=== PATIENT | female | born 1950 | race Caucasian/White ===

== ENCOUNTER 2017-10-29 17:09 | Emergency (ER) | payer MEDICARE ==
[2017-10-29 17:19] VITALS: BP 125/71; PULSE 91; TEMP 98; BMI 15.8
--- NOTE | 2017-10-29 19:11 | PDOC ---
History of Present Illness - General Chief Complaint: Pain Stated Complaint: PAIN Time Seen by Provider: 10/29/17 18:17 Past History - Past Medical History Allergies/Adverse Reactions: Allergies Allergy/AdvReac Type Severity Reaction Status Date / Time No Known Allergies Allergy Verified 10/29/17 17:19 Home Medications: Ambulatory Orders Ibuprofen [Advil -] 200 mg PO PRN 10/29/17 COPD: No Other medical history: osteoarthritis - Suicide/Smoking/Psychosocial Hx Smoking History: Never smoked *Physical Exam - Vital Signs Last Vital Signs Temp Pulse Resp BP Pulse Ox 98 F 91 H 18 125/71 100 10/29/17 17:16 10/29/17 17:16 10/29/17 17:16 10/29/17 17:16 10/29/17 17:16 *DC/Admit/Observation/Transfer Diagnosis at time of Disposition: Chronic pain Qualifiers: Chronic pain type: other chronic pain Qualified Code(s): G89.29 - Other chronic pain - Discharge Dispostion Disposition: LEFT BEFORE [facility] - Referrals Referrals: Hiren Mccloud MD [Primary Care Provider] - - Patient Instructions - Post Discharge Activity
== END 2017-10-29 22:50 | disposition left against medical advice (07) ==
LOC: JER 17:09
DX: Z53.21 Procedure and treatment not carried out due to patient leaving prior to being seen by health care provider (principal)
CPT/HCPCS: 99282-25

== ENCOUNTER 2018-01-24 15:57 | Observation (INO) | payer MEDICARE ==
--- NOTE | 2018-01-24 16:22 | PDOC ---
Rapid Medical Evaluation Time Seen by Provider: 01/24/18 16:18 Medical Evaluation: Allergies Allergy/AdvReac Type Severity Reaction Status Date / Time No Known Allergies Allergy Verified 10/29/17 17:19 I have performed a brief in-person evaluation of this patient. The patient presents with a chief complaint of: dizziness x 1 week; pain in head x 1 week Pertinent physical exam findings: none I have ordered the following: labs, IV, UA The patient will proceed to the ED for further evaluation. Discharge Disposition - Diagnosis Dizziness, Headache - Referrals - Patient Instructions - Post Discharge Activity
[2018-01-24 17:09] LABS: BASO % 0.7 % (0-2.0); HEMATOCRIT 38.7 % (32.4-45.2); MCH 27.9 pg (25.7-33.7); MCHC 33.7 g/dl (32.0-36.0); MEAN PLT VOLUME 7.6 fl (7.5-11.1); MONO % 6.7 % (3.8-10.2); NEUT % 56.6 % (42.8-82.8); PLATELET COUNT 365 K/MM3 (134-434); RBC 4.67 M/mm3 (3.60-5.2); RDW 13.3 % (11.6-15.6); WHITE BLOOD COUNT 7.9 K/mm3 (4.0-10.0)
[2018-01-24 17:34] LABS: ALBUMIN 3.7 g/dl (3.4-5.0); ANION GAP 6 (8-16); BLOOD UREA NITROGEN 18 mg/dL (7-18); CALCIUM 8.8 mg/dL (8.5-10.1); CHLORIDE 104 mmol/L (98-107); CO2 27 mmol/L (21-32); CREATININE 0.5 mg/dL (0.55-1.02); GLUCOSE,RANDOM 98 mg/dL (74-106); POTASSIUM 4.5 mmol/L (3.5-5.1); SGOT/AST 15 U/L (15-37); SGPT/ALT 21 U/L (12-78); SODIUM 137 mmol/L (136-145)
[2018-01-24 17:37] LABS: ALK PHOS 80 U/L (45-117); BILIRUBIN,TOTAL 0.6 mg/dL (0.2-1.0); TOT PROT 6.6 g/dl (6.4-8.2)
[2018-01-24 18:13] LABS: URINE APPEARANCE CLEAR; URINE BILIRUBIN NEGATIVE (<2.0 mg/dL); URINE COLOR YELLOW; URINE GLUCOSE (UA) NEGATIVE (NEGATIVE); URINE KETONE NEGATIVE (NEGATIVE); URINE LEUK ESTERASE TRACE (NEGATIVE); URINE NITRITE NEGATIVE (NEGATIVE); URINE PROTEIN NEGATIVE (NEGATIVE); URINE UROBILINOGEN NEGATIVE mg/dL (0.2-1.0)
[2018-01-24 18:28] LABS: EPI CELLS RARE /HPF (FEW); URINE MUCUS RARE
[2018-01-24] MEDS ORDERED: METOCLOPRAMIDE HCL INJECTION 10 MG/2 ML VIAL IVPUSH ONE (19:30)
[2018-01-24] MEDS ORDERED: SODIUM CHLORIDE 0.9% 1000 ML INFUS.BAG IV ONE (19:30)
--- NOTE | 2018-01-24 19:42 | PDOC ---
History of Present Illness <Salome Adames - Last Filed: 01/24/18 19:50> - General History Source: Patient, Family Exam Limitations: No Limitations - History of Present Illness Initial Comments: 01/24/18 20:19 The patient is a 67 year old female presenting with her daughter, with a significant past medical history of hypothyrodism, diverticulitis, osteoarthritis and osteoporosis, who presents to the emergency department complaining of a headache, dizziness and left sided weakness / numbness / pain for the last couple of days. She describes her headache as a pressure like discomfort, localized in the back of her head, radiating towards the front. She notes that she has since developed a redness in her right eye. The patient denies chest pain, shortness of breath, fever, chills, nausea, vomiting, diarrhea and constipation. Allergies: Benadryl, penicillin Past surgical history: None reported Social History: No alcohol, tobacco or drug use reported <John Garcia - Last Filed: 01/24/18 20:20> - General Chief Complaint: Headache Stated Complaint: EYE PROBLEM Time Seen by Provider: 01/24/18 16:18 Past History - Past Medical History COPD: No Thyroid Disease: Yes Other medical history: OP,OA - Surgical History Abdominal Surgery: Yes (F.T) - Suicide/Smoking/Psychosocial Hx Smoking History: Never smoked Have you smoked in the past 12 months: No Information on smoking cessation initiated: No Hx Alcohol Use: No Drug/Substance Use Hx: No Substance Use Type: None <Salome Adames - Last Filed: 01/24/18 19:50> <John Garcia - Last Filed: 01/24/18 20:20> - Past Medical History Allergies/Adverse Reactions: Allergies Allergy/AdvReac Type Severity Reaction Status Date / Time diphenhydramine Allergy Verified 01/24/18 16:18 [From Benadryl] Penicillins Allergy Verified 01/24/18 16:18 Home Medications: Ambulatory Orders Ibuprofen [Advil -] 200 mg PO PRN 10/29/17 Review of Systems - Review of Systems Able to Perform ROS?: Yes Comments:: 01/24/18 20:19 GENERAL/CONSTITUTIONAL: No fever or chills. No weakness. HEAD, EYES, EARS, NOSE AND THROAT: No change in vision. No ear pain or discharge. No sore throat. GASTROINTESTINAL: No nausea, vomiting, diarrhea or constipation. GENITOURINARY: No dysuria, frequency, or change in urination. CARDIOVASCULAR: No chest pain or shortness of breath. RESPIRATORY: No cough, wheezing, or hemoptysis. MUSCULOSKELETAL: No joint or muscle swelling or pain. No neck or back pain. SKIN: No rash NEUROLOGIC: (+) Headache and dizziness. Left sided weakness / numbness. No loss of consciousness. ENDOCRINE: No increased thirst. No abnormal weight change. HEMATOLOGIC/LYMPHATIC: No anemia, easy bleeding, or history of blood clots. ALLERGIC/IMMUNOLOGIC: No hives or skin allergy. <John Garcia - Last Filed: 01/24/18 20:20> *Physical Exam - Vital Signs Last Vital Signs Temp Pulse Resp BP Pulse Ox 97.8 F 83 18 101/62 100 01/24/18 16:20 01/24/18 16:20 01/24/18 16:20 01/24/18 16:20 01/24/18 16:20 <Salome Adames - Last Filed: 01/24/18 19:50> - Vital Signs Last Vital Signs Temp Pulse Resp BP Pulse Ox 97.8 F 83 18 101/62 100 01/24/18 16:20 01/24/18 16:20 01/24/18 16:20 01/24/18 16:20 01/24/18 16:20 - Physical Exam Comments: 01/24/18 20:19 Constitutional: Awake, alert, oriented. No acute distress. Head: Normocephalic. Atraumatic Eyes: PERRL. EOMI. Conjunctivae are not pale. ENT: Mucous membranes are moist and intact. Posterior pharynx without exudates or erythema. Uvula midline. Neck: Supple. Full ROM. No lymphadenopathy. Cardiovascular: Regular rate. Regular rhythm. S1, S2 regular. Distal pulses are 2+ and symmetric. Pulmonary/Chest: No evidence of respiratory distress. Clear to auscultation bilaterally No wheezing, rales or rhonchi. Abdominal: Soft and non-distended. There is no tenderness. No rebound, guarding or rigidity. No organomegaly. No palpable masses. Good bowel sounds. Back: No CVA tenderness. Musculoskeletal: No edema. No cyanosis. No clubbing. Full range of motion in all extremities. Nocalf tenderness. Radial/pedal pulses are intact and 2+ bilaterally Skin: Skin is warm and dry. No petechiae. No purpura. Neurological: (+) Left upper extremity ? weakness. Alert and oriented to person , place, and time. Cranial nerves II-XII are grossly intact. Normal speech. No sensory deficits. Psychiatric: Good eye contact. Normal interaction, affect and behavior. <John Garcia - Last Filed: 01/24/18 20:20> Heart Score/ECG Review - ECG Intrepretation Comment:: 01/24/18 19:49 sinus at 68, nl axis, nl interval, LVH, t wave inversions avl, no acute st/ changes, abnl ekg <Salome Adames - Last Filed: 01/24/18 19:50> ED Treatment Course - LABORATORY CBC & Chemistry Diagram: 01/24/18 16:57 01/24/18 16:57 - ADDITIONAL ORDERS Additional order review: Laboratory Results 01/24/18 01/24/18 17:50 16:57 Sodium 137 Potassium 4.5 Chloride 104 Carbon Dioxide 27 Anion Gap 6 L BUN 18 Creatinine 0.5 L Creat Clearance w eGFR > 60 Random Glucose 98 Calcium 8.8 Total Bilirubin 0.6 AST 15 ALT 21 Alkaline Phosphatase 80 Total Protein 6.6 Albumin 3.7 Urine Color Yellow Urine Appearance Clear Urine pH 6.0 Ur Specific [place] 1.020 Urine Protein Negative Urine Glucose (UA) Negative Urine Ketones Negative Urine Blood Negative Urine Nitrite Negative Urine Bilirubin Negative Urine Urobilinogen Negative Ur Leukocyte Esterase Trace Urine WBC (Auto) 2 Urine RBC (Auto) 1 Ur Epithelial Cells Rare Urine Mucus Rare 01/24/18 16:57 RBC 4.67 MCV 83.0 MCHC 33.7 RDW 13.3 MPV 7.6 Neutrophils % 56.6 Lymphocytes % 35.0 Monocytes % 6.7 Eosinophils % 1.0 Basophils % 0.7 - RADIOLOGY Radiology Studies Ordered: Category Date Time Status HEAD CT WITHOUT CONTRAST [CT] Stat CT Scan 01/24/18 19:29 Ordered CHEST PA & LAT [RAD] Stat Radiology 01/24/18 19:30 Ordered <Salome Adames - Last Filed: 01/24/18 19:50> - LABORATORY CBC & Chemistry Diagram: 01/24/18 16:57 01/24/18 16:57 - ADDITIONAL ORDERS Additional order review: Laboratory Results 01/24/18 01/24/18 17:50 16:57 Sodium 137 Potassium 4.5 Chloride 104 Carbon Dioxide 27 Anion Gap 6 L BUN 18 Creatinine 0.5 L Creat Clearance w eGFR > 60 Random Glucose 98 Calcium 8.8 Total Bilirubin 0.6 AST 15 ALT 21 Alkaline Phosphatase 80 Total Protein 6.6 Albumin 3.7 Urine Color Yellow Urine Appearance Clear Urine pH 6.0 Ur Specific [place] 1.020 Urine Protein Negative Urine Glucose (UA) Negative Urine Ketones Negative Urine Blood Negative Urine Nitrite Negative Urine Bilirubin Negative Urine Urobilinogen Negative Ur Leukocyte Esterase Trace Urine WBC (Auto) 2 Urine RBC (Auto) 1 Ur Epithelial Cells Rare Urine Mucus Rare 01/24/18 16:57 RBC 4.67 MCV 83.0 MCHC 33.7 RDW 13.3 MPV 7.6 Neutrophils % 56.6 Lymphocytes % 35.0 Monocytes % 6.7 Eosinophils % 1.0 Basophils % 0.7 <John Garcia - Last Filed: 01/24/18 20:20> Medical Decision Making - Medical Decision Making 01/24/18 19:50 a/p: 67yo female with stubbs since yesterday - L arm paresthesias and perioral numbness -slurred speech per the daughter since yesterday -no neck pain -no meningeal signs -mild weakness LUE on exam -will obtain head ct, labs, ekg, cxr -will need UA-will need obs overnight and consult to neuro 01/24/18 19:[address] Tamayo who accepts pt to service consult placed to Dr. Durham will place in stroke/tele <Salome Adames - Last Filed: 01/24/18 19:50> *DC/Admit/Observation/Transfer - Discharge Dispostion Decision to Admit order: Yes - Attestations Physician Attestion: 01/24/18 19:42 I, Dr. Salome Adames, DO, attest that this document has been prepared under my direction and personally reviewed by me in its entirety. I further attest, that it accurately reflects all work, treatment, procedures and medical decision -making performed by me. <Salome Adames - Last Filed: 01/24/18 19:50> - Attestations Scribe Attestion: 01/24/18 20:19 Documentation prepared by John Garcia, acting as medical assistant supervisor for Salome Adames DO <John Garcia - Last Filed: 01/24/18 20:20> Diagnosis at time of Disposition: Dizziness, Headache, Arm weakness, TIA (transient ischemic attack) - Discharge Dispostion Condition at time of disposition: Guarded
[2018-01-24] MEDS ORDERED: ACETAMINOPHEN 1000 MG/100 ML VIAL (NON FORMULARY) IVPB ONE (20:52)
[2018-01-24] MEDS ORDERED: ACETAMINOPHEN INJECTION 100 ML IVPB ONE (20:55)
[2018-01-24] MEDS ORDERED: METOCLOPRAMIDE HCL INJECTION 10 MG/2 ML VIAL ONE (20:55)
--- NOTE | 2018-01-24 21:07 | HP ---
Admitting History and Physical - Primary Care Physician PCP: Jeanie Tamayo - Admission Chief Complaint: headache and weakness History of Present Illness: 67 year old female presenting with her daughter, with a significant past medical history of hypothyrodism, diverticulitis, osteoarthritis and osteoporosis, who presents to the emergency department complaining of a headache , dizziness and left sided weakness / numbness / pain for the last couple of days. She describes her headache as a pressure like discomfort, localized in the back of her head, radiating towards the front. She notes that she has since developed a redness in her right eye. - Past Medical History Gastrointestinal: Yes: Diverticulitis Musculoskeletal: Yes: Osteoarthritis Endocrine: Yes: Hypothyroidism - Smoking History Smoking history: Never smoked Have you smoked in the past 12 months: No - Alcohol/Substance Use Hx Alcohol Use: No Home Medications - Allergies Allergies/Adverse Reactions: Allergies Allergy/AdvReac Type Severity Reaction Status Date / Time diphenhydramine Allergy Verified 01/24/18 16:18 [From Benadryl] Penicillins Allergy Verified 01/24/18 16:18 - Home Medications Home Medications: Ambulatory Orders Ibuprofen [Advil -] 200 mg PO PRN 10/29/17 Aspirin Coated [Ecotrin -] 81 mg PO DAILY #30 tablet.ec 01/25/18 Atorvastatin Ca [Lipitor] 40 mg PO HS #30 tablet 01/25/18 Levothyroxine [Synthroid -] 50 mcg PO DAILY #30 tablet 01/25/18 Review of Systems - Review of Systems Neurological: reports: Headache, Weakness Physical Examination Vital Signs: Vital Signs Temperature 97.8 F 01/24/18 16:20 Pulse Rate 83 01/24/18 16:20 Respiratory Rate 18 01/24/18 16:20 Blood Pressure 101/62 01/24/18 16:20 O2 Sat by Pulse Oximetry (%) 100 01/24/18 16:20 Constitutional: Yes: No Distress HENT: Yes: Atraumatic Neck: Yes: Supple Cardiovascular: Yes: Regular Rate and Rhythm Respiratory: Yes: CTA Bilaterally Gastrointestinal: Yes: Normal Bowel Sounds Extremities: Yes: WNL Edema: No Neurological: Yes: WNL ...Motor Strength: LUE (4/5) Labs: CBC, BMP 01/24/18 16:57 01/24/18 16:57 Problem List - Problems (1) Arm weakness Assessment/Plan: mild 4/5 ct scan done need mri/mra carotid doppler echo Code(s): R29.898 - OTH SYMPTOMS AND SIGNS INVOLVING THE MUSCULOSKELETAL SYSTEM (2) Headache Assessment/Plan: will start her on fioricet migraine? Code(s): R51 - HEADACHE (3) TIA (transient ischemic attack) Code(s): G45.9 - TRANSIENT CEREBRAL ISCHEMIC ATTACK, UNSPECIFIED Assessment/Plan Laboratory Tests 01/24/18 01/24/18 01/24/18 16:57 16:57 17:50 WBC 7.9 RBC 4.67 Hgb 13.0 Hct 38.7 MCV 83.0 MCH 27.9 MCHC 33.7 RDW 13.3 Plt Count 365 MPV 7.6 Absolute Neuts (auto) 4.5 Neutrophils % 56.6 Lymphocytes % 35.0 Monocytes % 6.7 Eosinophils % 1.0 Basophils % 0.7 Nucleated RBC % 0 Sodium 137 Potassium 4.5 Chloride 104 Carbon Dioxide 27 Anion Gap 6 L BUN 18 Creatinine 0.5 L Creat Clearance w eGFR > 60 Random Glucose 98 Calcium 8.8 Total Bilirubin 0.6 AST 15 ALT 21 Alkaline Phosphatase 80 Total Protein 6.6 Albumin 3.7 Urine Color Yellow Urine Appearance Clear Urine pH 6.0 Ur Specific [place] 1.020 Urine Protein Negative Urine Glucose (UA) Negative Urine Ketones Negative Urine Blood Negative Urine Nitrite Negative Urine Bilirubin Negative Urine Urobilinogen Negative Ur Leukocyte Esterase Trace Urine WBC (Auto) 2 Urine RBC (Auto) 1 Ur Epithelial Cells Rare Urine Mucus Rare
[2018-01-24] MEDS ORDERED: ACETAMINOPHEN/CAFFEINE/BUTALBITAL 1 TAB PO PRN (21:10)
[2018-01-25 00:44] LABS: BASO % 0.6 % (0-2.0); EOS % 1.3 % (0-4.5); HEMATOCRIT 37.2 % (32.4-45.2); HEMOGLOBIN 12.4 GM/dL (10.7-15.3); MCH 27.8 pg (25.7-33.7); MCHC 33.3 g/dl (32.0-36.0); MEAN CELL VOLUME 83.7 fl (80-96); MEAN PLT VOLUME 7.8 fl (7.5-11.1); MONO % 6.9 % (3.8-10.2); NEUT % 52.2 % (42.8-82.8); PLATELET COUNT 335 K/MM3 (134-434); RBC 4.44 M/mm3 (3.60-5.2); RDW 13.4 % (11.6-15.6); WHITE BLOOD COUNT 8.6 K/mm3 (4.0-10.0)
[2018-01-25 00:57] LABS: INR 1.02 (0.82-1.09); PROTHROMBIN TIME (PATIENT) 11.5 SEC (9.7-13.0)
[2018-01-25 01:02] LABS: ACTIVATED PTT 29.5 SECONDS (25.2-36.5)
[2018-01-25 01:09] LABS: ALBUMIN 3.4 g/dl (3.4-5.0); ANION GAP 5 (8-16); BILIRUBIN,TOTAL 0.5 mg/dL (0.2-1.0); BLOOD UREA NITROGEN 13 mg/dL (7-18); CALCIUM 8.2 mg/dL (8.5-10.1); CHLORIDE 108 mmol/L (98-107); CO2 26 mmol/L (21-32); CREATININE 0.5 mg/dL (0.55-1.02); GLUCOSE,RANDOM 138 mg/dL (74-106); MAGNESIUM 2.1 mg/dL (1.8-2.4); POTASSIUM 3.8 mmol/L (3.5-5.1); SGOT/AST 17 U/L (15-37); SGPT/ALT 20 U/L (12-78); SODIUM 139 mmol/L (136-145)
[2018-01-25 01:12] LABS: ALK PHOS 75 U/L (45-117); TOT PROT 6.2 g/dl (6.4-8.2)
[2018-01-25 01:48] VITALS: BMI 16.9
--- NOTE | 2018-01-25 08:29 | CON.NEURO ---
Consult Consult Specialty:: Neurology Referred by:: Dr. Tamayo Reason for Consultation:: Headache, Left sided Weakness, Redness of the right eye - History of Present Illness Chief Complaint: Headache, Left Sided Weakness, and Redness of the right eye History of Present Illness: Patient is a 67 year old woman who presents to the er with several days of headache and left sided weakness. She also has some redness of the right eye. She had the headache posteriorly but now also complains of some pain along the bridge of her nose. - History Source History Provided By: Patient, Medical Record Limitations to Obtaining History: No Limitations - Past Medical History Gastrointestinal: Yes: Diverticulitis Musculoskeletal: Yes: Osteoarthritis Endocrine: Yes: Hypothyroidism - Alcohol/Substance Use Hx Alcohol Use: No - Smoking History Smoking history: Never smoked Have you smoked in the past 12 months: No Home Medications - Allergies Allergies/Adverse Reactions: Allergies Allergy/AdvReac Type Severity Reaction Status Date / Time diphenhydramine Allergy Verified 01/24/18 16:18 [From Benadryl] Penicillins Allergy Verified 01/24/18 16:18 - Home Medications Home Medications: Ambulatory Orders Ibuprofen [Advil -] 200 mg PO PRN 10/29/17 Physical Exam-Neuro Vital Signs: Vital Signs Temperature 98.2 F 01/25/18 05:17 Pulse Rate 74 01/25/18 05:17 Respiratory Rate 20 01/25/18 05:17 Blood Pressure 125/65 01/25/18 05:17 O2 Sat by Pulse Oximetry (%) 100 01/25/18 05:08 Constitutional: Yes: Well Nourished, Calm, Thin Labs: CBC, BMP 01/25/18 00:26 01/25/18 00:26 INR, PTT INR 1.02 (0.82-1.09) 01/25/18 00:26 - Neuro Exam Level Of Consciousness: Yes: Alert, Oriented to Person, Oriented to Place, Oriented to Time Eyes: Yes: ELI (mild right conjunctival injection, no proptosis) Speech: WNL Cranial Nerves II-XII Intact: Yes DTR's: 0 Left Achilles, 0 Right Achilles, 2+ Left Bicep, 2+ Right Bicep, 2+ Left Tricep, 2+ Right Tricep, 2+ Left Brachioradialis, 2+ Right Brachioradialis Babinski: Absent Response to light touch: Normal Coordination: Normal: Pronator Drift (none) Motor Strength: 5/5: Left Arm, Right Arm, Left Leg, Right Leg NIH Stroke Scale - Initial Evaluation Level of consciousness: Alert Ask patient the month and their age: Answers both correctly Ask patient to open & close eyes; make fist and let go: Obeys both correctly Best gaze (horizontal eye movement): Normal Visual field testing: No visual field loss Facial paresis (Show teeth/raise eyebrows/close eyes tight): Normal symmetrical movement Motor Function: Left Arm: Normal Motor Function: Right Arm: Normal (extends arm 90 (or 45) degrees for 10 seconds without drift Motor Function: Left Leg: Normal (extends leg 30 degrees for 5 seconds without drift) Motor Function: Right Leg: Normal (extends leg 30 degrees for 5 seconds without drift) Limb Ataxia: No ataxia Sensory(Use pinprick test arms,legs,trunk,face/side to side): Normal Best language (Describe picture, name items, read sentences): No Aphasia Dysarthria (read several words): Normal articulation Extinction and Inattention: No abnormality - Total Score NIH Stroke Scale Score: 0 Imaging - Results Cat Scan: Report Reviewed (negative), Image Reviewed Problem List - Problems (1) Arm weakness Code(s): R29.898 - OTH SYMPTOMS AND SIGNS INVOLVING THE MUSCULOSKELETAL SYSTEM (2) Headache Code(s): R51 - HEADACHE (3) TIA (transient ischemic attack) Code(s): G45.9 - TRANSIENT CEREBRAL ISCHEMIC ATTACK, UNSPECIFIED Assessment/Plan transient weakness on the left side with headache. CT head unremarkable. Weakness appears to have resolved. Would get MRI, MRA, ECHO, Holter, lipid profile, ESR, CRP. We'll follow with you. Thanks.
[2018-01-25] MEDS ORDERED: ASPIRIN COATED 81 MG TABLET.EC PO SCH (10:00)
--- NOTE | 2018-01-25 11:53 | EKG ---
Test Reason : Blood Pressure : / mmHG Vent. Rate : 068 BPM Atrial Rate : 068 BPM P-R Int : 138 ms QRS Dur : 076 ms QT Int : 412 ms P-R-T Axes : 069 076 082 degrees QTc Int : 438 ms NORMAL SINUS RHYTHM CANNOT RULE OUT ANTERIOR INFARCT , AGE UNDETERMINED ABNORMAL ECG NO PREVIOUS ECGS AVAILABLE Confirmed by BECCA BAUTISTA MD ([id number]) on 01/25/2018 11:53:07 AM Referred By: Confirmed By:BECCA BAUTISTA MD
--- NOTE | 2018-01-25 13:27 | CONSULT ---
Admitting History and Physical - Primary Care Physician PCP: Jeanie Tamayo - Admission History of Present Illness: 67 year old female presenting with her daughter, with a significant past medical history of hypothyrodism, diverticulitis, osteoarthritis and osteoporosis, who presents to the emergency department complaining of a headache , dizziness and left sided weakness / numbness / pain for the last couple of days. She describes her headache as a pressure like discomfort, localized in the back of her head, radiating towards the front. She notes that she has since developed a redness in her right eye. History Source: Patient, Medical Record Limitations to Obtaining History: No Limitations, Language Barrier - Past Medical History Gastrointestinal: Yes: Diverticulitis Musculoskeletal: Yes: Osteoarthritis Endocrine: Yes: Hypothyroidism - Smoking History Smoking history: Never smoked Have you smoked in the past 12 months: No - Alcohol/Substance Use Hx Alcohol Use: No History - Admission Reason For Visit: TRANSIENT CEREBRAL ISCHEMIA - Diagnostics CT Scan: Report Reviewed ((-)) MRI: Pending - General Mental Status: Alert and Oriented, Awake and Alert, Able to Follow Commands Attention: Intact Ability to Follow Directions: Excellent Head/Neck Control: WFL - Hearing Hearing: Normal Speech Evaluation - Communication Primary Language: DANISH Communication: Yes: Within Normal Limits Oral Expression Ability: Yes: No Impairment - Speech Production Able to Make Needs Known: Yes: WNL Intelligibility: Yes: WNL - Speech Characteristics Voice Loudness: Normal Voice Pitch: Yes: Normal Voice Phonatory-based Quality: Yes: Normal Speech Pattern: Normal Speech Clarity: < 100% Nasal Resonance: Normal Articulation: Yes: Precise Rate of Speech: Intact - Language/Auditory Comprehension Follows: Yes: 2 Stage Simple Commands - Language/Verbal Expression Able to Respond to Simple Queries: Yes: WNL Able to Communicate Wants and Needs: Yes: WNL Functional Communication Status: Yes: WNL - Memory/Perception technician terminal and repeater Memory: Yes: WNL Short Term Memory: Yes: WNL - Swallow Evaluation/Bedside Assessment Current Nutritional Intake: Dysphagia Pureed, Thin Liquids Oral Secretions: Yes: WFL Dentition: Yes: Adequate Facial Symmetry at Rest: Symmetrical Facial Symmetry on Retraction: Symmetrical Facial Movement: Controlled Sensation: Reduced Left Against Resistance Opening: Normal Against Resistance Closing: Normal Pucker Lips: Normal Smile: Normal Lingual Movement: Normal, Symmetric Lingual Speed of Movement: Normal Lingual Movement Strgth Against Opposition: Normal Lingual Movement Characteristics: Normal Velopharyngeal Movement: Normal Laryngeal Elevation: WFL Laryngeal Movement: Able to Palpate Rate of Intake: WFL Bolus Size: WFL Labial Seal: WFL Chewing: WFL Oral Prep Time: WFL A-P Transit: WFL Pocketing: None Timing of Swallow: WFL Coughing/Throat Clear: No Change in Voice: No Recommendations - Speech Evaluation, Impression/Plan Impression: Speech, language, cognition, swallowing intact. Reports reduced perioral sensation L>R - Dysphagia Impressions/Plan Swallowing Skills: WF Dysphagia Impressions: No Impairment *Silent aspiration: cannot be R/O at bedside - Recommendations Diet Consistency: Regular Medication Administration: Whole with water Liquids: Thin Liquids
--- NOTE | 2018-01-25 16:37 | PN ---
Progress Note, Physician - Current Medication List Current Medications: Active Medications Acetaminophen/Butalbital/Caffeine (Fioricet -) 1 tablet PO Q6H PRN PRN Reason: HEADACHE Aspirin (Ecotrin -) 81 mg PO DAILY [facility] Last Admin: 01/25/18 09:16 Dose: 81 mg Atorvastatin Calcium (Lipitor -) 40 mg PO HS JOSE - Objective Vital Signs: Vital Signs Temperature 98.2 F 01/25/18 14:23 Pulse Rate 66 01/25/18 14:23 Respiratory Rate 18 01/25/18 14:23 Blood Pressure 112/58 01/25/18 14:23 O2 Sat by Pulse Oximetry (%) 100 01/25/18 09:00 Labs: CBC, BMP 01/25/18 00:26 01/25/18 00:26 INR, PTT INR 1.02 (0.82-1.09) 01/25/18 00:26 Problem List - Problems (1) Arm weakness Code(s): R29.898 - OTH SYMPTOMS AND SIGNS INVOLVING THE MUSCULOSKELETAL SYSTEM (2) Headache Code(s): R51 - HEADACHE (3) TIA (transient ischemic attack) Code(s): G45.9 - TRANSIENT CEREBRAL ISCHEMIC ATTACK, UNSPECIFIED
[2018-01-25] MEDS ORDERED: LEVOTHYROXINE NA 25 MCG TABLET (FP) PO SCH (17:00)
--- NOTE | 2018-01-25 19:07 | DS ---
Physical Examination Vital Signs: Vital Signs Temperature 98.3 F 01/25/18 17:00 Pulse Rate 73 01/25/18 17:00 Respiratory Rate 20 01/25/18 17:00 Blood Pressure 126/89 01/25/18 17:00 O2 Sat by Pulse Oximetry (%) 100 01/25/18 09:00 Constitutional: Yes: No Distress HENT: Yes: Atraumatic Neck: Yes: Supple Cardiovascular: Yes: Regular Rate and Rhythm Respiratory: Yes: CTA Bilaterally Gastrointestinal: Yes: Normal Bowel Sounds Extremities: Yes: WNL Neurological: Yes: Alert, Oriented ...Motor Strength: WNL Labs: CBC, BMP 01/25/18 00:26 01/25/18 00:26 Discharge Summary Reason For Visit: TRANSIENT CEREBRAL ISCHEMIA Current Active Problems Arm weakness (Acute) Dizziness (Acute) Headache (Acute) TIA (transient ischemic attack) (Acute) Condition: Good - Instructions Referrals: Dylan Durham MD [Staff Physician] - Hiren Mccloud MD [Primary Care Provider] - Disposition: HOME - Home Medications Comprehensive Discharge Medication List: Ambulatory Orders Ibuprofen [Advil -] 200 mg PO PRN 10/29/17 Aspirin Coated [Ecotrin -] 81 mg PO DAILY #30 tablet.ec 01/25/18 Atorvastatin Ca [Lipitor] 40 mg PO HS #30 tablet 01/25/18 Levothyroxine [Synthroid -] 50 mcg PO DAILY #30 tablet 01/25/18 dc home
[2018-01-25 19:57] VITALS: BP 124/71; PULSE 80; TEMP 98.1
[2018-01-25] MEDS ORDERED: ATORVASTATIN CA 40 MG TABLET (FP) PO SCH (22:00)
== END 2018-01-25 19:42 | disposition home or self-care (01) ==
LOC: JER 15:57 → JERBED 19:42 → J4W 01-25 00:59
PROVIDERS: ADMIT Internal Medicine; ATTEND Internal Medicine
PROC: 3E033NZ Introduction of Analgesics, Hypnotics, Sedatives into Peripheral Vein, Percutaneous Approach (ICD-10-PCS; principal; 2018-01-24)
PROC: 3E033GC Introduction of Other Therapeutic Substance into Peripheral Vein, Percutaneous Approach (ICD-10-PCS; 2018-01-24)
PROC: 3E0337Z Introduction of Electrolytic and Water Balance Substance into Peripheral Vein, Percutaneous Approach (ICD-10-PCS; 2018-01-24)
DX: G45.9 Transient cerebral ischemic attack, unspecified (principal); R51 Headache; R29.898 Other symptoms and signs involving the musculoskeletal system; R42 Dizziness and giddiness; E03.9 Hypothyroidism, unspecified; M19.90 Unspecified osteoarthritis, unspecified site; M81.0 Age-related osteoporosis without current pathological fracture; Z88.0 Allergy status to penicillin
CPT/HCPCS: 36415; 70450-TC; 70544-TC; 70551-TC; 80053; 81003; 81015; 82550; 83735; 84443; 84484; 85025; 85610; 85730; 93005; 93010; 93306-TC; 93880-TC; 96374; 96375; 99283-25; G0378; J0131; J7030